=== PATIENT | female | born 1980 | race Caucasian/White ===

== ENCOUNTER 2016-11-17 11:00 | Emergency (ER) | payer SELFPAY ==
[2008-09-09 10:00] VITALS: BP 140/81
[~2016-11-17] VITALS: Ht 170.2 cm; Wt 86.4 kg
[~2016-11-17 11:00] MED LIST: ALBUTEROL0.09 MG/A4 IH; ALLEGRA30 MG PO; AMOXICILLIN 50500 MG PO; AMOXICILLIN 8751 TAB PO; BACTRIM DS 8001 TAB PO; CEFTIN500 MG PO; CIPRO 500MG TA500 MG PO; CLEOCIN HC150 MG/CAP PO; DARVOCET-N-101 UDTAB PO; DILAUDID 4MG TAB4 MG PO; LEVAQUIN 5500 MG/TAB PO; LORTAB 5/500 501 TAB PO; MOTRIN 600600 MG/TAB PO; NO HOME MEDICATIONS; NORCO 325 MG-51 TAB PO; NUVARING1 ICR VG; OMEPRAZOLE20 MG PO; PERCOCET 325 MG1 TA2 PO; PHENERGAN 25 TA25 MG PO; PHENERGAN W/CO120 M1 PO; PREDNISONE10 MG PO; TREXIMET PO; TYLENOL W/COD1 UDTAB PO; ULTRAM 50MG TAB50 MG; ULTRAM 50MG TAB50 MG PO; VENTOLIN0.09 MG IH; VICODIN 5/5001 UDTAB PO; ZOFRAN 4MG T4 MG/TAB PO; [UNRECOGNIZED DRUG - OTHER]; [UNRECOGNIZED DRUG - OTHER]; nuvaring
[2016-11-17 11:09] VITALS: BP 139/82; TEMP 97.6
[2016-11-17 14:38] VITALS: PULSE 68
== END 2016-11-17 14:39 | disposition home or self-care (01) ==
LOC: COL.ER 11:00
DX: S99.922A Unspecified injury of left foot, initial encounter (principal); S93.602A Unspecified sprain of left foot, initial encounter; M77.32 Calcaneal spur, left foot; X50.9XXA Other and unspecified overexertion or strenuous movements or postures, initial encounter; Y92.009 Unspecified place in unspecified non-institutional (private) residence as the place of occurrence of the external cause

== ENCOUNTER 2016-12-06 12:51 | Emergency (ER) | payer SELFPAY ==
[2008-09-09 10:00] VITALS: BP 140/81
[~2016-12-06] VITALS: Ht 167.6 cm; Wt 94.5 kg
[2016-12-06 12:55] VITALS: BP 141/95; TEMP 97.6
[2016-12-06] MEDS ORDERED: FLEXERIL 1010 MG/TAB PO (13:59)
[2016-12-06 14:12] VITALS: PULSE 57
== END 2016-12-06 14:13 | disposition home or self-care (01) ==
LOC: COL.ER 12:51
DX: S30.0XXA Contusion of lower back and pelvis, initial encounter (principal); M16.9 Osteoarthritis of hip, unspecified; Z98.51 Tubal ligation status; Z98.890 Other specified postprocedural states; W10.9XXA Fall (on) (from) unspecified stairs and steps, initial encounter

== ENCOUNTER 2017-12-10 18:29 | Emergency (ER) | payer SELFPAY ==
[2008-09-09 10:00] VITALS: BP 140/81
[~2017-12-10] VITALS: Ht 167.6 cm; Wt 93.2 kg
[~2017-12-10 18:29] MED LIST changes: +FLEXERIL 1010 MG/TAB PO; +POLYMYXIN B/TRIMETH OU
[2017-12-10 18:32] VITALS: BP 123/78; TEMP 98
[2017-12-10] MEDS ORDERED: CEPHALEXIN500 M1 PO (19:45)
[2017-12-10] MEDS ORDERED: TYLENOL W/COD1 UDTAB PO (19:45)
[2017-12-10 19:57] VITALS: PULSE 70
== END 2017-12-10 19:55 | disposition home or self-care (01) ==
LOC: COL.ER 18:29
DX: S91.202A Unspecified open wound of left great toe with damage to nail, initial encounter (principal); W22.8XXA Striking against or struck by other objects, initial encounter; Y92.009 Unspecified place in unspecified non-institutional (private) residence as the place of occurrence of the external cause

== ENCOUNTER 2017-12-14 14:58 | Emergency (ER) | payer SELFPAY ==
[2008-09-09 10:00] VITALS: BP 140/81
[~2017-12-14] VITALS: Ht 167.6 cm; Wt 93.2 kg
[~2017-12-14 14:58] MED LIST changes: +CEPHALEXIN500 M1 PO
[2017-12-14 15:09] VITALS: BP 141/87; TEMP 98.3
[2017-12-14 16:24] VITALS: PULSE 53
== END 2017-12-14 16:26 | disposition home or self-care (01) ==
LOC: COL.ER 14:58
DX: S91.202A Unspecified open wound of left great toe with damage to nail, initial encounter (principal); Z23 Encounter for immunization; W22.8XXA Striking against or struck by other objects, initial encounter; Y92.009 Unspecified place in unspecified non-institutional (private) residence as the place of occurrence of the external cause

== ENCOUNTER 2018-03-29 15:05 | Emergency (ER) | payer SELFPAY ==
[2008-09-09 10:00] VITALS: BP 140/81
[~2018-03-29] VITALS: Ht 170.2 cm; Wt 90.9 kg
[2018-03-29 15:08] VITALS: TEMP 98.3
[2018-03-29 16:22] LABS: BASO # 0.1 (0.0-0.2); BASO % 0.5 % (0.0-2.0); EOS # 0.1 (0.0-0.7); EOS % 0.7 % (0-4.0); GRAN # 7.4 (1.4-6.5); GRAN % 77.9 % (42.2-75.2); HEMATOCRIT 41.2 % (37.0-47.0); HEMOGLOBIN 13.8 g/dl (12.5-16.0); LYMPH # 1.4 (1.2-3.4); LYMPH % 14.9 % (20.0-51.0); MEAN CELL VOLUME 85 fl (80.0-100.0); MEAN CORPUSCULAR HEMOGLOBIN 28 pg (27.0-31.0); MEAN CORPUSCULAR HGB CONC 34 g/dl (33.0-37.0); MEAN PLATELET VOLUME 10.4 fl (7.4-10.4); MONO # 0.5 (0.1-0.6); MONO % 5.6 % (1.7-9.3); PLATELET COUNT 289 K/mm3 (130-400); RED BLOOD COUNT 4.87 M/mm3 (4.10-5.30); REDCELL DISTRIBUTION WIDTH-CV 13.5 % (11.5-14.5)
[2018-03-29 17:28] LABS: ALBUMIN 4.6 gm/dL (3.5-5.0); BILIRUBIN,TOTAL 0.4 mg/dL (0.0-1.0); CALCIUM 9.8 mg/dL (8.4-10.2); CREATININE, serum 0.62 mg/dL (0.52-1.25)
[2018-03-29 17:32] LABS: COLLECTION METHOD CLEAN CATCH
[2018-03-29 17:50] LABS: AMORPHOUS CRYSTAL Present /uL; PH 7 (5-8); SQUAMOUS EPITHELIAL 0-2 /hpf; URINE APPEARANCE Clear; URINE BACTERIA Rare /hpf; URINE BILIRUBIN Negative (NEGATIVE); URINE BLOOD Negative (NEGATIVE); URINE COLOR Yellow; URINE GLUCOSE Negative (NEGATIVE); URINE KETONE Trace (NEGATIVE); URINE LEUKOCYTE ESTERASE Negative (NEGATIVE); URINE NITRATE Negative (NEGATIVE); URINE PROTEIN(semi-quant) Negative (NEGATIVE); URINE RBC 0-2 /hpf; URINE UROBILINOGEN Negative (NEGATIVE)
[2018-03-29] MEDS ORDERED: ZOFRAN ODT4 MG PO (18:09)
[2018-03-29 18:19] VITALS: BP 125/79; PULSE 71
== END 2018-03-29 18:19 | disposition home or self-care (01) ==
LOC: COL.ER 15:05
PROVIDERS: Emergency Medicine
DX: K29.70 Gastritis, unspecified, without bleeding (principal); Z87.442 Personal history of urinary calculi; Z98.890 Other specified postprocedural states
CPT/HCPCS: J2765; J7030

== ENCOUNTER 2018-07-26 11:40 | Emergency (ER) | payer SELFPAY ==
[2008-09-09 10:00] VITALS: BP 140/81
[~2018-07-26] VITALS: Ht 167.6 cm; Wt 95.5 kg
[~2018-07-26 11:40] MED LIST changes: +ZOFRAN ODT4 MG PO
[2018-07-26 11:55] VITALS: TEMP 97.8
[2018-07-26] MEDS ORDERED: LIDODERM 5% PATC1 EA TP (13:58)
[2018-07-26] MEDS ORDERED: FLEXERIL 1010 MG/TAB PO (13:58)
[2018-07-26 14:22] VITALS: BP 140/68; PULSE 58
== END 2018-07-26 14:23 | disposition home or self-care (01) ==
LOC: COL.ER 11:40
DX: S76.012A Strain of muscle, fascia and tendon of left hip, initial encounter (principal); X50.0XXA Overexertion from strenuous movement or load, initial encounter; Y92.009 Unspecified place in unspecified non-institutional (private) residence as the place of occurrence of the external cause

== ENCOUNTER 2019-05-16 14:06 | Emergency (ER) | payer SELFPAY ==
[2008-09-09 10:00] VITALS: BP 140/81
[~2019-05-16] VITALS: Ht 167.6 cm; Wt 109.1 kg
[~2019-05-16 14:06] MED LIST changes: +LIDODERM 5% PATC1 EA TP
[2019-05-16 14:15] VITALS: TEMP 97.6
[2019-05-16 15:23] LABS: STREP SCREEN NEGATIVE
[2019-05-16] MEDS ORDERED: CEPHALEXIN500 M1 PO (16:20)
[2019-05-16] MEDS ORDERED: PREDNISONE20 MG PO (16:20)
[2019-05-16 16:30] VITALS: BP 148/64; PULSE 72
== END 2019-05-16 16:26 | disposition home or self-care (01) ==
LOC: COL.ER 14:06
PROVIDERS: Physician Assistant
DX: J03.90 Acute tonsillitis, unspecified (principal)

== ENCOUNTER 2019-10-30 15:07 | Emergency (ER) | payer SELFPAY ==
[2008-09-09 10:00] VITALS: BP 140/81
[~2019-10-30] VITALS: Ht 170.2 cm; Wt 109.1 kg
[~2019-10-30 15:07] MED LIST changes: +PREDNISONE20 MG PO
[2019-10-30 15:12] VITALS: TEMP 98.3
[2019-10-30] MEDS ORDERED: NORCO 325 MG-51 TAB PO (15:54)
[2019-10-30] MEDS ORDERED: SSD25 GM TP (16:08)
[2019-10-30 16:16] VITALS: BP 168/95; PULSE 61
== END 2019-10-30 16:17 | disposition home or self-care (01) ==
LOC: COL.ER 15:07
DX: L55.1 Sunburn of second degree (principal); Z87.442 Personal history of urinary calculi; Z98.51 Tubal ligation status; Z79.52 Long term (current) use of systemic steroids

== ENCOUNTER 2023-04-21 12:12 | Emergency (ER) | payer SELFPAY ==
[~2023-04-21] VITALS: Ht 167.6 cm; Wt 95.5 kg
[~2023-04-21 12:12] MED LIST changes: +SSD25 GM TP
[2023-04-21 12:21] VITALS: TEMP 98.3
[2023-04-21 13:50] VITALS: BP 110/69; PULSE 62
== END 2023-04-21 13:50 | disposition home or self-care (01) ==
LOC: COL.ER 12:12
DX: S06.0X0A Concussion without loss of consciousness, initial encounter (principal); S01.81XA Laceration without foreign body of other part of head, initial encounter; W22.8XXA Striking against or struck by other objects, initial encounter; Y99.0 Civilian activity done for income or pay